=== PATIENT | female | born 1960 | race Caucasian/White ===

== ENCOUNTER 2021-02-26 14:55 | Emergency (ER) | payer OTHER, SELFPAY ==
[~2021-02-26] VITALS: Ht 165.1 cm; Wt 65.8 kg
[2021-02-26 14:55] VITALS: BP_SYST 114
[2021-02-26 16:30] LABS: BASOPHILS # (AUTO) 0.1 K/uL (0.0-0.2); BASOPHILS % (AUTO) 0.8 % (0.0-2.0); EOSINOPHILS # (AUTO) 0.1 K/uL (0.0-0.4); EOSINOPHILS % (AUTO) 1.2 % (0.0-4.0); HEMATOCRIT 41.4 % (36-48); HEMOGLOBIN 14.1 g/dL (12.0-16.0); LYMPHOCYTES # (AUTO) 3.9 K/uL (1.0-5.5); LYMPHOCYTES % (AUTO) 45.3 % (20.5-51.5); MEAN CORPUSCULAR HEMOGLOBIN 31 pg (27-31); MEAN CORPUSCULAR HGB CONC 34 % (32-36); MEAN CORPUSCULAR VOLUME 91 fL (79.0-98.0); MONOCYTES # (AUTO) 0.5 K/uL (0.0-1.0); MONOCYTES % (AUTO) 5.2 % (1.7-9.3); NEUTROPHILS # (AUTO) 4.1 K/uL (1.8-7.7); NEUTROPHILS % (AUTO) 47.5 % (40.0-70.0); PLATELET COUNT (AUTO) 402 K/uL (130-430); RED BLOOD CELL COUNT(AUTO) 4.57 MIL/uL (4.2-6.2); RED CELL DISTRIBUTION WIDTH 12.8 % (9.0-15.0); WHITE BLOOD COUNT (AUTO) 8.7 K/uL (4.8-10.8)
[2021-02-26 16:49] LABS: ANION GAP 16 (5-15); CALCIUM 10.4 mg/dL (8.4-11.0); CHLORIDE 102 mmol/L (98-107); CREATININE 1.33 mg/dL (0.55-1.30); GLUCOSE 142 mg/dL (70-99); POTASSIUM 4.1 mmol/L (3.5-5.1); SODIUM SERUM 143 mmol/L (136-145); UREA NITROGEN, BLOOD 20 mg/dL (8-21)
[2021-02-26 16:53] LABS: GFR AFRICAN AMERICAN 53 mL/min (>90)
[2021-02-26 16:55] LABS: ALANINE AMINOTRANSFERASE 39 U/L (12-78); ALBUMIN 3.9 g/dL (3.4-4.8); ASPARTATE AMINOTRANSFERASE 23 U/L (10-37); TOTAL BILIRUBIN 0.7 mg/dL (0.0-1.0)
[2021-02-26 16:59] LABS: ACETAMINOPHEN < 1 ug/mL (1-30)
[2021-02-26 17:00] LABS: ALCOHOL, BLOOD < 3 mg/dL (<10)
[2021-02-26 17:09] LABS: CHOLESTEROL 285 mg/dL (<200); HDL CHOLESTEROL 52 mg/dL (>55); LDL CHOLESTEROL 210 mg/dL (<100); TRIGLYCERIDES 206 mg/dL (30-150)
[2021-02-26 18:38] VITALS: BP_SYST 117
== END 2021-02-26 18:38 | disposition psychiatric hospital, planned readmission (93) ==
LOC: SED 14:55
DX: Z02.89 Encounter for other administrative examinations (principal); I10 Essential (primary) hypertension; E11.9 Type 2 diabetes mellitus without complications; F31.9 Bipolar disorder, unspecified; F20.9 Schizophrenia, unspecified; Z20.822 Contact with and (suspected) exposure to COVID-19
CPT/HCPCS: 36415; 80053; 80061; 83036; 85025; 87081; 87426; 99285; G0480; G0481; G0482

== ENCOUNTER 2021-04-25 19:43 | Inpatient (IN) | payer OTHER ==
[~2021-04-25] VITALS: Ht 160 cm; Wt 59.6 kg
[2021-04-25 19:50] VITALS: BP_SYST 100
[2021-04-25 20:50] LABS: BILIRUBIN,URINE NEGATIVE (NEGATIVE); CLARITY/URINE SL CLOUDY (CLEAR); COLOR,URINE YELLOW (YELLOW); GLUCOSE,URINE 3+ (NEGATIVE); KETONES,URINE NEGATIVE (NEGATIVE); LEUKOCYTE ESTERASE ,URINE 1+ (NEGATIVE); NITRITE, URINE NEGATIVE (NEGATIVE); PH,URINE 5.5 (5.0-8.0); PROTEIN URINE NEGATIVE (NEGATIVE); UROBILINOGEN,URINE 0.2 (0.2-1.0)
[2021-04-25 20:52] LABS: BLOOD, URINE TRACE (NEGATIVE)
[2021-04-25 20:55] LABS: BASOPHILS % (AUTO) 0.5 % (0.0-2.0); EOSINOPHILS # (AUTO) 0.1 K/uL (0.0-0.4); EOSINOPHILS % (AUTO) 1.2 % (0.0-4.0); HEMATOCRIT 38.2 % (36-48); HEMOGLOBIN 12.9 g/dL (12.0-16.0); LYMPHOCYTES # (AUTO) 2.1 K/uL (1.0-5.5); MEAN CORPUSCULAR HEMOGLOBIN 30 pg (27-31); MEAN CORPUSCULAR HGB CONC 34 % (32-36); MEAN CORPUSCULAR VOLUME 90 fL (79.0-98.0); MONOCYTES # (AUTO) 0.4 K/uL (0.0-1.0); MONOCYTES % (AUTO) 4.8 % (1.7-9.3); NEUTROPHILS # (AUTO) 5.3 K/uL (1.8-7.7); NEUTROPHILS % (AUTO) 66.5 % (40.0-70.0); PLATELET COUNT (AUTO) 255 K/uL (130-430); RED BLOOD CELL COUNT(AUTO) 4.25 MIL/uL (4.2-6.2)
[2021-04-25 21:03] LABS: BARBITURATE, URINE NEGATIVE (NEG <=200); BENZODIAZEPINE, URINE POSITIVE (NEG <=150); CANNABINOID, URINE NEGATIVE (NEG <=50); COCAINE, URINE NEGATIVE (NEG <=150); METHAMPHETAMINES SCREEN,URINE NEGATIVE (NEG <=500); OPIATE, URINE NEGATIVE (NEG <=100); PHENCYCLIDINE SCREEN,URINE NEGATIVE (NEG <=25); UR TRICYCLIC ANTIDEPRESSANTS NEGATIVE (NEG <=300); URINE AMPHETAMINE NEGATIVE (NEG <=500); URINE METHADONE NEGATIVE (NEG <=200); URINE OXYCODONE SCREEN NEGATIVE (NEG <=100); URINE PROPOXYPHENE SCREEN NEGATIVE (NEG <=300)
[2021-04-25 21:13] LABS: ANION GAP 9 (5-15); CALCIUM 8.9 mg/dL (8.4-11.0); CHLORIDE 100 mmol/L (98-107); CREATININE 1.25 mg/dL (0.55-1.30); POTASSIUM 3.9 mmol/L (3.5-5.1); SODIUM SERUM 137 mmol/L (136-145); UREA NITROGEN, BLOOD 22 mg/dL (8-21)
[2021-04-25 21:13] LABS: BACTERIA,URINE FEW /HPF (None Seen); CALCIUM OXALATE CRYSTALS,UR None Seen /HPF (None Seen); CALCIUM PHOSPHATE CRYSTALS,UR None Seen /HPF (None Seen); COARSE GRANULAR CASTS,URINE None Seen /LPF (None Seen); FINE GRANULAR CASTS,URINE None Seen /LPF (None Seen); HYALINE CASTS, URINE None Seen /LPF (None Seen); MUCUS,URINE None Seen /LPF (None Seen); OTHER CASTS, URINE None Seen /LPF (None Seen); OTHER CRYSTALS,URINE None Seen /HPF (None Seen); TRICHOMONAS,URINE None Seen /HPF (None Seen); TRIPLE PHOSPHATE CRYSTAL,UR None Seen /HPF (None Seen); URIC ACID CRYSTALS,URINE None Seen /HPF (None Seen); URINE AMORPHOUS PHOSPHATES None Seen /HPF (None Seen); URINE AMORPHOUS URATE None Seen /HPF (None Seen); WAXY CASTS,URINE None Seen /LPF (None Seen); WBC,URINE 20-50 /HPF (0-3); YEAST,URINE Many /HPF (None Seen)
[2021-04-25 21:17] LABS: ALANINE AMINOTRANSFERASE 32 U/L (12-78); ALBUMIN 3.2 g/dL (3.4-4.8); ASPARTATE AMINOTRANSFERASE 15 U/L (10-37); TOTAL BILIRUBIN 0.4 mg/dL (0.0-1.0)
[2021-04-25 21:24] LABS: GLUCOSE 420 mg/dL (70-99)
[2021-04-25 21:25] LABS: ALCOHOL, BLOOD < 3 mg/dL (<10); GFR AFRICAN AMERICAN 56 mL/min (>90)
[2021-04-25] MEDS ORDERED: INSULIN REGULAR, HUMAN 10 UNITS/0.1 ML INJ IVP ONE ×2 (21:30→23:30)
[2021-04-25] MEDS ORDERED: NACL 0.9% 1,000 ML IV ONE (21:30)
[2021-04-25] MEDS ORDERED: PIPERACILLIN/TAZOBACTAM 3.375 GM/VIAL (ZOSYN) IV ONE (21:43)
[2021-04-25] MEDS ORDERED: PIPERACILLIN/TAZO 3.375 GM in NS 50 ML IV ONE (21:45)
[2021-04-25 21:53] LABS: ACETAMINOPHEN < 1 ug/mL (1-30); CHOLESTEROL 226 mg/dL (<200); HDL CHOLESTEROL 47 mg/dL (>55); LDL CHOLESTEROL 148 mg/dL (<100); TRIGLYCERIDES 236 mg/dL (30-150)
[2021-04-25] MEDS ORDERED: VITD2000 PO (21:56)
[2021-04-25] MEDS ORDERED: DOCU250C14 PO (21:56)
[2021-04-25] MEDS ORDERED: DIVA250T PO (21:56)
[2021-04-25] MEDS ORDERED: OLAN10TA3 PO (22:04)
[2021-04-25] MEDS ORDERED: MULT-1100 PO (22:04)
[2021-04-25] MEDS ORDERED: ASCO500T20 PO (22:04)
[2021-04-25] MEDS ORDERED: SSREG SUBCUT (22:04)
[2021-04-25] MEDS ORDERED: HALO5VIA10 IM (22:04)
[2021-04-25] MEDS ORDERED: ACET325T53 PO (22:04)
[2021-04-25] MEDS ORDERED: GLUC1VIA14 IM (22:04)
[2021-04-25] MEDS ORDERED: HYDR-3917 PO (22:04)
[2021-04-25] MEDS ORDERED: GLU500 PO (22:04)
[2021-04-25] MEDS ORDERED: QUEtiapine FUMARATE 100 MG TABLET PO STA (23:53)
[2021-04-26 00:50] VITALS: BP_SYST 135
[2021-04-26] MEDS ORDERED: QUEtiapine FUMARATE 100 MG TABLET ONE (00:59)
[2021-04-26] MEDS: NACL 0.9% 1,000 ML IV SCH ×3 (01:01→21:09)
[2021-04-26] MEDS: INSULIN REGULAR, HUMAN 100 UNITS/ML, 10 ML VIAL (humuLIN R) SUBCUT PRN ×2 (06:21→11:24)
[2021-04-26 08:00] VITALS: BP_SYST 140
[2021-04-26] MEDS ORDERED: GLUCAGON HCL IM PRN (10:45)
[2021-04-26] MEDS ORDERED: NALOXONE HCL 0.4 MG/ML AMP (NARCAN) IVP PRN (10:45)
[2021-04-26] MEDS ORDERED: HYDROcodone/ACETAMIN 5-325 MG TAB (NORCO/ VICODIN) PO PRN (10:45)
[2021-04-26] MEDS ORDERED: HALOPERIDOL LACTATE 5 MG/ML VIAL IM PRN (10:45)
[2021-04-26] MEDS ORDERED: ACETAMINOPHEN 325 MG TABLET PO PRN (10:45)
[2021-04-26] MEDS ORDERED: GLUCAGON,HUMAN RECOMBINANT 1 MG VIAL IM PRN (11:00)
[2021-04-26] MEDS ORDERED: DIPHENHYDRAMINE INJ 50 MG/ML VIAL IVP PRN ×2 (11:15→16:30)
[2021-04-26 12:15] VITALS: BP_SYST 128
[2021-04-26 12:18] VITALS: BP_SYST 138
[2021-04-26] MEDS ORDERED: FLUCONAZOLE 100 MG TABLET (DIFLUCAN) PO ONE (12:30)
[2021-04-26] MEDS ORDERED: LORazepam 2 MG/ML VIAL IM PRN (13:00)
[2021-04-26] MEDS: HALOPERIDOL LACTATE 5 MG/ML VIAL IM PRN (13:25)
[2021-04-26] MEDS: PIPERACILLIN/TAZO 3.375/DEX-IS 50 ML IV SCH ×3 (14:02→23:44)
[2021-04-26 16:33] VITALS: BP_SYST 138
[2021-04-26] MEDS: metFORMIN HCL 500 MG TABLET PO SCH (17:39)
[2021-04-26] MEDS ORDERED: QUEtiapine FUMARATE 100 MG TABLET PO ONE (17:45)
[2021-04-26] MEDS ORDERED: LORazepam 2 MG/ML VIAL IVP PRN (17:45)
[2021-04-26] MEDS ORDERED: QUEtiapine FUMARATE 25 MG TABLET PO SCH ×2 (18:00)
[2021-04-26 20:00] VITALS: BP_SYST 115
[2021-04-26] MEDS ORDERED: OLANZapine 10 MG TABLET PO SCH (21:00)
[2021-04-26] MEDS: LACTOBACILLUS RHAMNOSUS GG 1 CAP CAPSULE PO SCH ×2 (21:00→23:47)
[2021-04-26] MEDS: DIVALPROEX SODIUM 250 MG TABLET(DEPAKOTE) PO SCH ×2 (21:00→23:49)
[2021-04-26] MEDS: NYSTATIN 15 GM TOPICAL POWDER TP SCH (21:08)
[2021-04-26] MEDS: QUEtiapine FUMARATE 100 MG TABLET PO SCH ×2 (22:00→23:47)
[2021-04-27 01:13] VITALS: BP_SYST 126
[2021-04-27] MEDS: NACL 0.9% 1,000 ML IV SCH ×2 (06:17→15:54)
[2021-04-27] MEDS: PIPERACILLIN/TAZO 3.375/DEX-IS 50 ML IV SCH ×3 (06:17→18:00)
[2021-04-27] MEDS: metFORMIN HCL 500 MG TABLET PO SCH ×2 (06:18→17:00)
[2021-04-27] MEDS: QUEtiapine FUMARATE 100 MG TABLET PO SCH ×2 (06:18→14:30)
[2021-04-27] MEDS: INSULIN REGULAR, HUMAN 100 UNITS/ML, 10 ML VIAL (humuLIN R) SUBCUT PRN (06:29)
[2021-04-27 06:30] LABS: BASOPHILS % (AUTO) 0.4 % (0.0-2.0); EOSINOPHILS # (AUTO) 0.2 K/uL (0.0-0.4); EOSINOPHILS % (AUTO) 2.5 % (0.0-4.0); HEMATOCRIT 36.1 % (36-48); HEMOGLOBIN 12.1 g/dL (12.0-16.0); LYMPHOCYTES # (AUTO) 2.7 K/uL (1.0-5.5); LYMPHOCYTES % (AUTO) 33.2 % (20.5-51.5); MEAN CORPUSCULAR HEMOGLOBIN 30 pg (27-31); MEAN CORPUSCULAR HGB CONC 33 % (32-36); MEAN CORPUSCULAR VOLUME 90 fL (79.0-98.0); MONOCYTES # (AUTO) 0.4 K/uL (0.0-1.0); NEUTROPHILS # (AUTO) 4.7 K/uL (1.8-7.7); NEUTROPHILS % (AUTO) 58.9 % (40.0-70.0); PLATELET COUNT (AUTO) 254 K/uL (130-430); RED BLOOD CELL COUNT(AUTO) 4.03 MIL/uL (4.2-6.2); RED CELL DISTRIBUTION WIDTH 12.9 % (9.0-15.0)
[2021-04-27 06:51] LABS: ALBUMIN 2.8 g/dL (3.4-4.8); CALCIUM 8.7 mg/dL (8.4-11.0); CREATININE 0.99 mg/dL (0.55-1.30); TOTAL BILIRUBIN 0.6 mg/dL (0.0-1.0)
[2021-04-27 07:48] VITALS: BP_SYST 110
[2021-04-27] MEDS ORDERED: OLANZapine 5 MG TABLET PO SCH (09:00)
[2021-04-27] MEDS ORDERED: MULTIVITS,CA,MINERALS/IRON/FA 1 TABLET PO SCH (09:00)
[2021-04-27] MEDS ORDERED: ASCORBIC ACID 500 MG TABLET PO SCH (09:00)
[2021-04-27] MEDS ORDERED: CHOLECALCIFEROL (VITAMIN D3) 2,000 UNIT TABLET PO SCH (09:00)
[2021-04-27] MEDS ORDERED: FLUCONAZOLE 100 MG TABLET (DIFLUCAN) PO SCH (09:00)
[2021-04-27] MEDS ORDERED: DOCUSATE SODIUM 250 MG CAPSULE PO SCH (09:00)
[2021-04-27] MEDS ORDERED: DIVALPROEX SODIUM 250 MG TAB.SR.24H (DEPAKOTE ER) PO SCH (09:00)
[2021-04-27] MEDS: NYSTATIN 15 GM TOPICAL POWDER TP SCH (09:25)
[2021-04-27] MEDS: LACTOBACILLUS RHAMNOSUS GG 1 CAP CAPSULE PO SCH (09:28)
[2021-04-27] MEDS: DIVALPROEX SODIUM 250 MG TABLET(DEPAKOTE) PO SCH (09:28)
[2021-04-27] MEDS ORDERED: CEPH250C PO (09:51)
[2021-04-27] MEDS ORDERED: GLU500 PO (09:51)
[2021-04-27] MEDS ORDERED: SER100 PO (09:53)
[2021-04-27 11:29] VITALS: BP_SYST 110
[2021-04-27] MEDS ORDERED: MUPIROCIN 2% TOPICAL OINTMENT 22 GM NS SCH (14:00)
[2021-04-27 15:42] VITALS: BP_SYST 126
[2021-04-27 16:52] VITALS: BP_SYST 126
[2021-04-27] MEDS: HALOPERIDOL LACTATE 5 MG/ML VIAL IM PRN (21:00)
== END 2021-04-27 21:18 | DRG 638 ==
LOC: SED 19:43 → SMU 23:53
PROVIDERS: ADMIT Internal Medicine; ATTEND Internal Medicine
DX: E11.65 Type 2 diabetes mellitus with hyperglycemia (principal); N39.0 Urinary tract infection, site not specified; G89.4 Chronic pain syndrome; M16.0 Bilateral primary osteoarthritis of hip; F25.9 Schizoaffective disorder, unspecified; Z79.899 Other long term (current) drug therapy
CPT/HCPCS: 36415; 72170-TC; 80053; 80061; 80307; 81000; 82962; 83036; 85025; 87040-TC; 87081; 87086; 96365; 96375; 96376; 99285; G0480; G0481; G0482; J1200; J1630; J1815; J2060; J2543; J7030

== ENCOUNTER 2021-07-17 14:39 | Emergency (ER) | payer OTHER, SELFPAY ==
[~2021-07-17] VITALS: Ht 167.6 cm; Wt 61.2 kg
[~2021-07-17 14:39] MED LIST: ACET325T53 PO; ASCO500T20 PO; CEPH250C PO; DIVA250T PO; DOCU250C14 PO; GLU500 PO; GLUC1VIA14 IM; HALO5VIA10 IM; HYDR-3917 PO; MULT-1100 PO; SER100 PO; SSREG SUBCUT; VITD2000 PO
[2021-07-17 14:48] VITALS: BP_SYST 115
--- NOTE | 2021-07-17 14:50 | NUR ---
PT TO BED 2 FOR EVALUATION.
--- NOTE | 2021-07-17 14:52 | NUR ---
PT BIB NON-EMERGENT TRANSPORT FROM [facility]. PT WAS SENT FOR MEDICAL CLERANCE TO [facility]. PT HAS HISTORY OF DEPRESSION, BIPOLAR, DIABETES, AND DEMENTIA. PT DENIES ANY PAIN CURRENTLY WITH STABLE V/S.
--- NOTE | 2021-07-17 15:01 | NUR ---
COVID SWAB OBTAINED AND SENT TO LAB FOR ANALYSIS.
--- NOTE | 2021-07-17 16:20 | NUR ---
BLOOD DRAWN AND SENT TO LAB.
[2021-07-17 16:51] LABS: ANION GAP 4 (5-15); BASOPHILS % (AUTO) 0.6 % (0.0-2.0); CALCIUM 9.1 mg/dL (8.4-11.0); CHLORIDE 102 mmol/L (98-107); CREATININE 1.06 mg/dL (0.55-1.30); EOSINOPHILS # (AUTO) 0.2 K/uL (0.0-0.4); GLUCOSE 141 mg/dL (70-99); HEMATOCRIT 28.8 % (36-48); HEMOGLOBIN 9.7 g/dL (12.0-16.0); LYMPHOCYTES # (AUTO) 2.6 K/uL (1.0-5.5); LYMPHOCYTES % (AUTO) 43.1 % (20.5-51.5); MEAN CORPUSCULAR HEMOGLOBIN 31 pg (27-31); MEAN CORPUSCULAR HGB CONC 34 % (32-36); MEAN CORPUSCULAR VOLUME 92 fL (79.0-98.0); MONOCYTES # (AUTO) 0.6 K/uL (0.0-1.0); MONOCYTES % (AUTO) 9.3 % (1.7-9.3); NEUTROPHILS # (AUTO) 2.6 K/uL (1.8-7.7); PLATELET COUNT (AUTO) 321 K/uL (130-430); POTASSIUM 4.4 mmol/L (3.5-5.1); RED BLOOD CELL COUNT(AUTO) 3.13 MIL/uL (4.2-6.2); RED CELL DISTRIBUTION WIDTH 13.4 % (9.0-15.0); SODIUM SERUM 139 mmol/L (136-145); UREA NITROGEN, BLOOD 25 mg/dL (8-21); WHITE BLOOD COUNT (AUTO) 5.9 K/uL (4.8-10.8)
[2021-07-17 16:58] LABS: ALANINE AMINOTRANSFERASE 19 U/L (12-78); ALBUMIN 2.9 g/dL (3.4-4.8); ASPARTATE AMINOTRANSFERASE 14 U/L (10-37); TOTAL BILIRUBIN 0.2 mg/dL (0.0-1.0)
[2021-07-17 17:00] LABS: GFR AFRICAN AMERICAN 68 mL/min (>90)
[2021-07-17 17:01] LABS: ACETAMINOPHEN < 1 ug/mL (1-30); ALCOHOL, BLOOD < 3 mg/dL (<10)
[2021-07-17 17:03] LABS: CHOLESTEROL 193 mg/dL (<200); HDL CHOLESTEROL 42 mg/dL (>55); LDL CHOLESTEROL 113 mg/dL (<100); TRIGLYCERIDES 200 mg/dL (30-150)
[2021-07-17 17:07] LABS: BILIRUBIN,URINE NEGATIVE (NEGATIVE); BLOOD, URINE NEGATIVE (NEGATIVE); COLOR,URINE YELLOW (YELLOW); GLUCOSE,URINE NEGATIVE (NEGATIVE); KETONES,URINE NEGATIVE (NEGATIVE); LEUKOCYTE ESTERASE ,URINE 2+ (NEGATIVE); NITRITE, URINE NEGATIVE (NEGATIVE); PH,URINE 7.5 (5.0-8.0); PROTEIN URINE NEGATIVE (NEGATIVE); UROBILINOGEN,URINE 0.2 (0.2-1.0)
[2021-07-17 17:13] LABS: CLARITY/URINE HAZY (CLEAR)
--- NOTE | 2021-07-17 17:13 | NUR ---
Anup carlin in [facility] - 07/17/21 at 1715 by ANA M Sharanid swab obtained and sent to lab for analysis.
--- NOTE | 2021-07-17 17:15 | NUR ---
MRSA SWAB OBTAINED AND SENT TO LAB FOR ANALYSIS.
[2021-07-17 17:24] LABS: BARBITURATE, URINE NEGATIVE (NEG <=200); BENZODIAZEPINE, URINE POSITIVE (NEG <=150); CANNABINOID, URINE NEGATIVE (NEG <=50); COCAINE, URINE NEGATIVE (NEG <=150); METHAMPHETAMINES SCREEN,URINE NEGATIVE (NEG <=500); OPIATE, URINE POSITIVE (NEG <=100); PHENCYCLIDINE SCREEN,URINE NEGATIVE (NEG <=25); UR TRICYCLIC ANTIDEPRESSANTS NEGATIVE (NEG <=300); URINE AMPHETAMINE NEGATIVE (NEG <=500); URINE METHADONE NEGATIVE (NEG <=200); URINE OXYCODONE SCREEN NEGATIVE (NEG <=100); URINE PROPOXYPHENE SCREEN NEGATIVE (NEG <=300)
[2021-07-17] MEDS ORDERED: NITR-85 PO (17:25)
--- NOTE | 2021-07-17 17:30 | NUR ---
REPORT CALLED TO [facility] SPOKE WITH PAULO. WAITING FOR ETA OF TRANSPORT.
[2021-07-17 17:31] LABS: RBC,URINE 0-3 /HPF (0-3)
[2021-07-17 17:32] LABS: BACTERIA,URINE MODERATE /HPF (None Seen); MUCUS,URINE 1+ /LPF (None Seen); WBC,URINE 50-80 /HPF (0-3)
[2021-07-17] MEDS: NITROFURANTOIN MONOHYD/M-CRYST 100 MG CAPSULE (MacroBID) PO ONE (17:32)
--- NOTE | 2021-07-17 19:00 | NUR ---
PT STILL AWAITING TRANSPORT. PT IS NO DISTRESS WITH STABLE V/S.
--- NOTE | 2021-07-17 19:09 | NUR ---
REPORT GIVEN TO LES WALKER WHO WILL ASSUME CARE.
[2021-07-17 20:30] VITALS: BP_SYST 127
--- NOTE | 2021-07-17 20:30 | NUR ---
Patient to be transferred to [facility]. Is being transferred due to higher level of care. Receiving facility has accepting physician and available space. ER physician has signed transfer form. Patient or responsible democrat has agreed to transfer and signed form. Patient belongings inventoried and will be sent with patient. Copy of nursing notes, lab reports, EKG, Physicians Orders and X-rays to be sent with patient. Report called to PAULO at receiving facility. Receiving physician is YARI. [facility] ambulance service has been called for transfer. ETA is 2030.
--- NOTE | 2021-07-18 17:59 | NUR ---
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 Pt was transfered to [facility], called and talked to her Nurse, Ashley, to report.
== END 2021-07-17 20:30 ==
LOC: SED 14:39
DX: D64.9 Anemia, unspecified (principal); N39.0 Urinary tract infection, site not specified; F31.9 Bipolar disorder, unspecified; F20.9 Schizophrenia, unspecified; I10 Essential (primary) hypertension; E11.9 Type 2 diabetes mellitus without complications; Z79.899 Other long term (current) drug therapy; Z20.822 Contact with and (suspected) exposure to COVID-19
CPT/HCPCS: 36415; 80053; 80061; 80307; 81000; 83036; 85025; 87081; 87086; 87426; 99285; G0480; G0481; G0482